=== PATIENT | female | born 1945 | race Caucasian/White ===

== ENCOUNTER 2016-03-15 05:41 | Day surgery (SDC) | payer MEDICARE, OTHER ==
[2016-03-15] VITALS (13 sets, daily range): BP systolic 124–154; BP diastolic 53–76; PULSE 69–85; RESP 15–19; O2SAT 93–97
[~2016-03-15] VITALS: Ht 160 cm; Wt 97.7 kg
[~2016-03-15 05:41] MED LIST: ATEN25TA PO; ATOR20TA PO; CALC1CAP22 PO; DONE5TAB30 PO; DOXY100C43 PO; GLPZ5T PO; HYDR-4003 PO; HYDR25TA4 PO; INSU100I; INSU100V4 SUBQ; LORA0.5T PO; LOSA100T29 PO; PANT40TA3 PO; PRAM0.252 PO; PRD5T PO; PREG200C PO; QUET100T PO; SERT50TA9 PO; [UNRECOGNIZED DRUG - OTHER] PO
[2016-03-15] MEDS ORDERED: 0.9% Sodium Chloride 1,000 ML IV ONE (08:59)
[2016-03-15] MEDS ORDERED: Heparin 5,000 Units/500 mL NS Premix IV ONE (12:01)
--- NOTE | 2016-03-15 13:09 | NUR ---
Admit Admitted to [facility] about 1130. VSS. Denies pain. IVs started.See EMR for further info and assessment. Labs were done 03-09-16. BG 170. Bandaid intact to right great toe and pt. states is MRSA. Contact precaution followed. Garcia catheter placed per order and protocol with return of moderate amt. light kaelyn urine. Fluids initiated per order. Procedure and recovery reviewed and verbalizes understanding. Premeds given fashion model to laboratory inspector. Going to laboratory inspector now.
[2016-03-15] MEDS ORDERED: fentaNYL-PF 50 mCg/mL 2 mL Inj ONE (13:23)
--- NOTE | 2016-03-15 15:20 | DI96 ---
[address] [address] PERIPHERAL CATHETERIZATION/INTERVENTION REPORT PATIENT: JOSELIN BARFIELD I : 1945 MR#: [id number] ADMIT: 03/15/2016 JOB ID: [id number] DATE: 03/15/2016 PATIENT PROFILE: The patient is a 71-year-old woman with history of insulin-dependent diabetes, hypertension, hypercholesterolemia and prior smoker. She had nonhealing ulcer of the right foot in 2010, and underwent two drug-eluting stent placement to the mid and distal right posterior tibial artery on March 13, 2010. The patient did better initially and was able to walk some distance. However, she developed ulcer of the right big toe with MRSA in the past few weeks. PROCEDURE: 1. Conscious sedation for 26 minutes. 2. Vascular access from the left groin under ultrasound guidance. 3. Pelvic angiogram with distal runoff. VASCULAR CLOSURE DEVICE: None. COMPLICATIONS: None. METHOD: Conscious sedation was achieved with IV Versed and IV fentanyl. Vascular access was obtained from the left groin under 1% lidocaine local anesthesia by using a 4-Emirati sheath. This was performed under ultrasound guidance. A 4-Emirati pigtail catheter was advanced to the lower abdominal aorta and pelvic angiogram with distal runoff was performed in the AP view by injecting contrast at a rate of 12 cc/second for 9 seconds. This catheter was withdrawn. Following sheath removal, hemostasis was achieved by manual compression. The patient tolerated the procedure well. She was transferred to [facility] in good condition. TOTAL CONTRAST USED: 130 cc. FLUOROSCOPY TIME: 0.9 minutes. RESULTS: 1. The distal abdominal aorta has minimal irregularity. 2. Bilateral common iliac arteries, bilateral internal iliac arteries and bilateral external iliac arteries are normal. 3. Bilateral common femoral arteries have minor irregularity with minimal calcification. 4. Bilateral superficial femoral arteries and bilateral profunda arteries have minor disease. 5. Bilateral popliteal arteries are normal. 6. There is three-vessel runoff below the right knee proximally. The mid portion is not well visualized due to motion artifact. There is two-vessel runoff that reached the right ankle. It appeared that the right posterior tibial artery has diffuse disease proximally. There is two-vessel runoff below the left knee. CONCLUSION: 1. Diffuse severe proximal right posterior tibial artery stenosis. 2. There is no inflow disease. MTDD
--- NOTE | 2016-03-15 18:49 | NUR ---
Recovery/Discharge Received from laboratory inspector about 1420. VSS. Denied pain. Left groin stable without bleeding or hematoma. Peripheral pulses palp. Woke more fully at 1630. Took po well. Daughters at bedside. Bedrest complete at 1820. Up and ambulated in room without change in groin. Discharge instructions given, see sheets. Pt. and daughters verbalized understanding. IVs discontinued intact. Discharged ambulatory with all belongings in no distress at 1849. Addendum: 03/15/16 at 1856 by BRIELLE CASTRO RN Jose discontinued before discharge.
== END 2016-03-15 23:59 | disposition home or self-care (01) ==
LOC: SOUO 05:41
PROVIDERS: ATTEND Internal Medicine Interventional Cardiology
DX: I70.235 Atherosclerosis of native arteries of right leg with ulceration of other part of foot (principal); L97.519 Non-pressure chronic ulcer of other part of right foot with unspecified severity; L08.9 Local infection of the skin and subcutaneous tissue, unspecified; B95.62 Methicillin resistant Staphylococcus aureus infection as the cause of diseases classified elsewhere; E11.65 Type 2 diabetes mellitus with hyperglycemia; I10 Essential (primary) hypertension; E78.5 Hyperlipidemia, unspecified; E78.00 Pure hypercholesterolemia, unspecified; E66.01 Morbid (severe) obesity due to excess calories; Z68.35 Body mass index [BMI] 35.0-35.9, adult; G47.33 Obstructive sleep apnea (adult) (pediatric); Z79.52 Long term (current) use of systemic steroids; Z79.84 Long term (current) use of oral hypoglycemic drugs; Z79.4 Long term (current) use of insulin; Z95.820 Peripheral vascular angioplasty status with implants and grafts; Z87.891 Personal history of nicotine dependence
CPT/HCPCS: 36200; 75716; 99152; 99153; C1769; J1644; J2060; J2250; J3010; J7030; Q9967

== ENCOUNTER 2016-03-25 01:14 | Day surgery (SDC) | payer MEDICARE, OTHER ==
[2016-03-25] VITALS (14 sets, daily range): BP systolic 109–158; BP diastolic 51–73; PULSE 57–83; RESP 13–22; O2SAT 93–95
[~2016-03-25] VITALS: Ht 160 cm; Wt 98.4 kg
[~2016-03-25 01:14] MED LIST changes: -CALC1CAP22 PO; -DOXY100C43 PO
[2016-03-25 08:12] LABS: BASOPHILS % (AUTO) 0.5 % (0-3); EOSINOPHILS % (AUTO) 3.5 % (0-5); Mean Corpuscular Hemoglobin 27.2 pg (27.0-35.0); NEUTROPHILS % (AUTO) 59.8 % (40-74); Platelet Count 172 bil/L (150-400)
[2016-03-25] MEDS ORDERED: Heparin 1,000 Unit/mL 10 mL Inj ONE ×2 (09:16→11:06)
[2016-03-25] MEDS ORDERED: Heparin 5,000 Units/500 mL NS Premix IV ONE ×2 (09:16→11:04)
[2016-03-25] MEDS ORDERED: fentaNYL-PF 50 mCg/mL 2 mL Inj ONE ×2 (09:31→10:42)
[2016-03-25] MEDS ORDERED: Nitroglycerin 50,000 mcg/250 mL D5W Premix IV ONE (10:10)
[2016-03-25] MEDS ORDERED: 0.9% Sodium Chloride 50 ML ONE (12:06)
[2016-03-25] MEDS ORDERED: Protamine Sulfate 10 mg/mL 5 mL Inj ONE (12:06)
[2016-03-25] MEDS ORDERED: hydrALAZINE 20 mg/mL Inj ONE (12:39)
[2016-03-25] MEDS ORDERED: HYDROcodone-APAP 5-325 mg Tablet PO ONE (13:07)
--- NOTE | 2016-03-25 16:53 | NUR ---
Transfer report Patient moved by bed from [facility] to room 2030 following a recovery post Angiogram of the lower Left Leg. Access site for today's procedure - Right femoral artery access, but not used is soft and dry and non-tender Left femoral artery puncture used for the procedure today is sealed with a Star closure device and is soft and non-tender. Patient understands she is on Bed rest until 1900. Report of patient care prior to me transferring patient to floor was given by Dana Tubbs RN for patient in [facility] to Taylor Moralez RN for [facility].
[2016-03-25] MEDS ORDERED: Sodium Chloride LOK Flush 10 mL Syringe IVFLUSH PRN (17:45)
[2016-03-25] MEDS ORDERED: 0.9% Sodium Chloride 250 ML BOLUS IV PRN (17:45)
[2016-03-25] MEDS ORDERED: Ondansetron 2 mg/mL 2 mL Inj IVPUSH PRN (17:45)
[2016-03-25] MEDS ORDERED: Atropine 1 mg/10 mL (Code) Syringe IVPUSH PRN (17:45)
[2016-03-25] MEDS ORDERED: 0.9% Sodium Chloride 400 ML (4 HRS) IV ONE (17:45)
[2016-03-25] MEDS ORDERED: HYDROcodone-APAP 5-325 mg Tablet PO PRN (17:50)
--- NOTE | 2016-03-25 20:32 | DI96 ---
[address] [address] PERIPHERAL CATHETERIZATION/INTERVENTION REPORT PATIENT: JOSELIN BARFIELD I : 1945 MR#: [id number] ADMIT: 03/25/2016 JOB ID: [id number] DATE: 03/25/2016 PATIENT PROFILE: The patient is a 71-year-old lady who has peripheral artery disease with chronic ulcer of the right great toe. PROCEDURE: 1. Conscious sedation for 2 hours and 42 minutes. 2. Vascular access by antegrade approach from the right groin under ultrasound guidance. 3. Vascular access from the left groin by retrograde approach under ultrasound guidance. 4. Selective contralateral right popliteal angiogram with runoff. 5. Balloon angioplasty and stenting to the proximal right posterior tibial artery. 6. Vascular closure device, StarClose. COMPLICATION: None. PROCEDURE IN DETAIL: Conscious sedation was achieved with IV Versed and IV fentanyl. Vascular access was initially obtained from the right groin by antegrade approach using micropuncture needle. This was performed under ultrasound guidance. However, the access site was in the right profunda artery. I cannot obtain access more proximally due to her large belly size. A micro puncture sheath was left in place. Vascular access was then obtained retrogradely from the left groin by using micropuncture needle under ultrasound guidance. This was obtained in the proximal right superficial femoral artery and a 6-Uruguayan sheath was then placed. Heparin 3,000 units were given. A 5-Uruguayan rim catheter was used to get over the horn and exchanged over a glide Advantage to a 55 cm Wyatt sheath. The tip of the sheath was in the proximal mid right superficial femoral artery. Repeated doses of heparin were given in order to maintain ACT above 250. A 6-U[place]ayan multipurpose guide catheter was placed in the below-knee right popliteal artery. Selective contralateral right popliteal angiogram with runoff was performed in the AP view and oblique view. It demonstrated tandem 80% and 95% proximal right posterior tibial artery stenosis with slow flow down this artery. The right anterior tibial artery is normal. The right peroneal artery has diffuse minor disease. A run-through wire was placed inside the right posterior tibial artery. The proximal right posterior tibial artery lesions were pre-dilated with a 2.5 x 15 mm balloon. A Xience 3.0 x 15 mm stent was placed in the more distal lesion and deployed at 10 atmospheres for 30 seconds. A Xience 3.0 x 12 mm stent was placed in the proximal lesion and deployed at 10 atmospheres for 30 seconds. Nitroglycerin 500 mcg was given intracoronary. Final angiogram was obtained. Following sheath removal, hemostasis was achieved by manual compression in the right groin and using a StarClose in the left groin. The patient tolerated the procedure well. She was transferred to [facility] in good condition. TOTAL CONTRAST USED: 60 cc. FLUOROSCOPY TIME: 7.4 minutes. RESULTS: 1. Severe tandem 80 % and 95% proximal right posterior tibial artery stenosis. 2. This was successfully treated with two drug-eluting stents. 3. Normal right anterior tibial artery. 4. Diffuse minor disease of the right peroneal artery. MTDD
[2016-03-25] MEDS ORDERED: Insulin GLARgine 100 Unit/mL Syringe SUBQ SCH (21:00)
[2016-03-25] MEDS: Insulin LISPRO Medium-Dose Scale SUBQ SCH (22:10)
[2016-03-26 00:04] VITALS: BP 182/79; PULSE 76; RESP 20; O2SAT 94
[2016-03-26] MEDS ORDERED: HYDROcodone-APAP 5-325 mg Tablet PO ONE (00:50)
--- NOTE | 2016-03-26 03:30 | NUR ---
Pain: Pt. complaining of various pains in various locations during shift. At start of shift, pt. complained of generalized pain throughout, PRN [place] administered. Pt. stated that [place] helped slightly with generalized pain, but then began complaining of generalized back pain, pt. refused Tylenol. Pt. then began complaining of bilateral leg pain, bilateral popliteal pulse present and equal, weak to palpation. Bilateral pedal pulse and bilateral posterior tibial pulse equal and weak to palpation. No discoloration to bilateral lower leg. Pt. requesting Lyrica, physician notified of findings, orders received for scheduled Lyrica, medication administered. Pt. resting quietly in room for a couple of hours, then began to complain of bilateral leg pain, pt. requesting additional [place]. Physician notified of findings, orders received for one time dose of [place] in addition to PRN [place]. One time dose of [place] administered. Pt. now dozing in and out of sleep, pt. reports bilateral leg pain as 2/10 and tolerable.
[2016-03-26 04:53] VITALS: BP 125/54; PULSE 76; RESP 20; O2SAT 95
[2016-03-26 05:21] LABS: Mean Corpuscular Hemoglobin 26.4 pg (27.0-35.0)
[2016-03-26] MEDS ORDERED: Pantoprazole 40 mg ER24 Tablet PO SCH (06:30)
[2016-03-26 07:51] VITALS: BP 144/72; PULSE 86; RESP 16; O2SAT 95
[2016-03-26] MEDS ORDERED: predniSONE 5 mg Tablet PO SCH (08:00)
[2016-03-26] MEDS: Insulin LISPRO Medium-Dose Scale SUBQ SCH ×2 (08:02→12:24)
[2016-03-26] MEDS ORDERED: Insulin GLARgine 100 Unit/mL Syringe SUBQ SCH (08:30)
--- NOTE | 2016-03-26 14:02 | DIS ---
[address] [address] DISCHARGE SUMMARY PATIENT: JOSELIN BARFIELD I : 1945 MR#: [id number] ADMIT: 03/25/2016 JOB ID: [id number] DIS: ADMITTING DIAGNOSIS: Peripheral artery disease with ulcer of the right great toe. DISCHARGE DIAGNOSIS: Peripheral artery disease with ulcer of the right great toe. SECONDARY DIAGNOSES: 1. Diabetes mellitus type 2, uncontrolled. 2. Hypertension. 3. Hyperlipidemia. 4. History of smoking. 5. Severe obesity with BMI of 38.4 kg/m2. 6. Obstructive sleep apnea. 7. Current chronic use of systemic steroid due to rheumatoid arthritis. 8. Anemia. PROCEDURES: 1. Vascular access under ultrasound guidance. 2. Selective contralateral right popliteal angiogram with runoff. 3. Balloon angioplasty and stenting to the proximal right posterior tibial artery. COMPLICATION: None. HISTORY OF PRESENT ILLNESS: Please see the detailed history in the accompanying office note dated March 13, 2016. The patient has multiple risk factors. She has pain in her right foot for several weeks. She saw Dr. Nicholas for ulcer under the toenail of her right great toe. HOSPITAL COURSE: She was found to have severe tandem 80% and 95% proximal right posterior tibial artery stenosis. This was successfully treated with two drug-eluting stents. The patient feels better after the procedure. Her right foot pain is gone. She was discharged from the hospital on the following day in good condition. However, her hemoglobin dropped from 9.0 before the procedure to 7.5 after the procedure. This was due to acute blood loss during the procedure. She was return to see me in one month with CBC, BMP, lipid profile, and arterial duplex ultrasound of the right lower extremity. DISCHARGE MEDICATIONS: Remain the same, with the addition of clopidogrel 75 mg once daily. The dose of atenolol was increased from 12.5 mg to 25 mg once daily. She was advised to take iron supplement. She was referred to see the kitchen cleaner for diabetic management. GENEVIEVE
--- NOTE | 2016-03-26 15:00 | NUR ---
Discharge Pt eager to discharge, notified who reviewed Pt before placing paper discharge order. Pt given stent/angioplasty booklet and post cardiac cath care sheet. Pt's IV access D/C'd and intact. Pt given lab requisition sheet that was in the Pt's chart. Pt instructed to f/u with [facility] as listed in paperwork. Pt's discharge medication list reviewed with Pt at bedside. Pt verbalized understanding of all discharge instructions. All belongings accompanied Pt at time of discharge.
== END 2016-03-26 14:36 | disposition home or self-care (01) ==
LOC: SOUO 01:14 → PCC 16:36 → SOUO 03-26 14:36
PROVIDERS: ATTEND Internal Medicine Interventional Cardiology
DX: I70.235 Atherosclerosis of native arteries of right leg with ulceration of other part of foot (principal); L97.519 Non-pressure chronic ulcer of other part of right foot with unspecified severity; E11.65 Type 2 diabetes mellitus with hyperglycemia; D62 Acute posthemorrhagic anemia; I10 Essential (primary) hypertension; E78.5 Hyperlipidemia, unspecified; E66.01 Morbid (severe) obesity due to excess calories; Z68.38 Body mass index [BMI] 38.0-38.9, adult; G47.33 Obstructive sleep apnea (adult) (pediatric); M06.9 Rheumatoid arthritis, unspecified; E11.42 Type 2 diabetes mellitus with diabetic polyneuropathy; Z79.84 Long term (current) use of oral hypoglycemic drugs; Z79.4 Long term (current) use of insulin; Z79.52 Long term (current) use of systemic steroids; Z95.820 Peripheral vascular angioplasty status with implants and grafts; Z87.891 Personal history of nicotine dependence; A49.02 Methicillin resistant Staphylococcus aureus infection, unspecified site
CPT/HCPCS: 36415; 37230; 80048; 85025; 85027; 93005; 99152; 99153; C1725; C1760; C1766; C1769; C1874; C1887; J0360; J1644; J1815; J2060; J2250; J2720; J3010; J7030; J7512; Q9967